=== PATIENT | male | born 1945 | race Caucasian/White ===

== ENCOUNTER 2021-08-25 13:13 | Inpatient (IN) | payer OTHER, MEDICARE ==
[~2021-08-25] VITALS: Ht 182.9 cm; Wt 98.0 kg
[2021-08-25 15:26] LABS: BASOPHILS % (AUTO) 0.7 % (0-1); EOSINOPHILS # (AUTO) 0.1 X10'3 (0-0.9); EOSINOPHILS % (AUTO) 2.2 % (0-6); HEMATOCRIT 38.8 % (42.0-52.0); HEMOGLOBIN 13.1 g/dl (14.0-17.9); LYMPHOCYTES # (AUTO) 1.4 X10'3 (1.1-4.8); MEAN CORPUSCULAR HEMOGLOBIN 29.9 PG (27.0-31.0); MEAN CORPUSCULAR HGB CONC 33.7 g/dL (33.0-36.5); MEAN CORPUSCULAR VOLUME 88.7 FL (78-98); MEAN PLATELET VOLUME 7.7 FL (7.4-10.4); MONOCYTES # (AUTO) 0.5 X10'3 (0-0.9); MONOCYTES % (AUTO) 9.1 % (2-12); NEUTROPHILS # (AUTO) 3.4 X10'3 (1.8-7.7); PLATELET COUNT 275 X10'3 (140-440); RED BLOOD COUNT 4.37 X10'6 (4.70-6.10); RED CELL DISTRIBUTION WIDTH 14.8 % (11.5-14.5); WHITE BLOOD COUNT 5.4 X10'3 (4.5-11.0)
[2021-08-25 15:41] LABS: APTT 30 SECONDS (22-32)
[2021-08-25 15:43] LABS: ALANINE AMINOTRANSFERASE 31 U/L (12-78); ALBUMIN 3.3 G/DL (3.4-5.0); ALBUMIN/GLOBULIN RATIO 0.9 (1.1-1.5); ALKALINE PHOSPHATASE 72 IU/L (46-116); ANION GAP 8 (8-16); ASPARTATE AMINO TRANSFERASE 19 U/L (10-37); BILIRUBIN,TOTAL 0.4 MG/DL (0.1-1.0); BLOOD UREA NITROGEN 23 MG/DL (7-18); BUN/CREATININE RATIO 27.7 (5.4-32.0); CALCIUM 8.6 MG/DL (8.5-10.1); CHLORIDE 107 MMOL/L (99-107); CREATININE 0.83 MG/DL (0.60-1.10); GLUCOSE 150 MG/DL (70-104); POTASSIUM 4.3 MMOL/L (3.5-5.1); SODIUM 142 MMOL/L (135-145); TOTAL CARBON DIOXIDE 26.9 MMOL/L (24-32); TOTAL PROTEIN 6.8 G/DL (6.4-8.2); eGFR 90 ML/MIN
[2021-08-25 15:51] LABS: C-REACTIVE PROTEIN 0.06 MG/DL (0.0-0.5); MAGNESIUM 2.6 MG/DL (1.5-2.4)
[2021-08-25] MEDS ORDERED: iohexol 350 MG/ML 50ML vial IV ONE (18:44)
[2021-08-25] MEDS ORDERED: iohexol 350MG/ML 100ml bottle IV ONE (18:44)
[2021-08-25 19:19] LABS: CLARITY,URINE CLEAR (Clear); COLOR,URINE YELLOW (Yellow); GLUCOSE, URINE >=1000 mg/dl (Neg); KETONES,URINE NEGATIVE (Neg); LEUKOCYTE ESTERASE ,URINE NEGATIVE (Neg); NITRITES, URINE NEGATIVE (Neg); OCCULT BLOOD,URINE NEGATIVE (Neg); PROTEIN,URINE TRACE mg/dl (Neg)
[2021-08-25 19:20] LABS: UA COLLECTION TYPE URINAL
[2021-08-25 19:29] LABS: BACTERIA,URINE FEW /HPF (Neg); MUCUS STRANDS FEW /LPF (Neg); RBC,URINE 0-2 /HPF (0-2); SQUAMOUS EPITHELIAL CELL,UR FEW /LPF (FEW); WBC,URINE 0-4 /HPF (0-4)
[2021-08-25] MEDS ORDERED: MESSAGE TO NURSING PO ONE (19:35)
[2021-08-25] MEDS ORDERED: heparin 10,000 units/1 ML INJ IV ONE (20:55)
[2021-08-25] MEDS: heparin 25,000 UNIT/250ml bag 250 ML IV SCH (21:10)
[2021-08-25 23:15] VITALS: BP 155/57
--- NOTE | 2021-08-25 23:30 | NUR ---
Received report from Chrissie RUIZ in the ER. Pt arrived on the unit via gurney and a slide board was used for transfer. Pt was on room air, saline locked, VSS, and with no signs of distress. Clothes were placed in a personal belongings bag and placed at bedside. Will continue to monitor. Addendum: 08/26/21 at 0510 by Lanette Gregorio RN charted on wrong patient
--- NOTE | 2021-08-25 23:30 | NUR ---
Received report from Chrissie in the ER. Pt arrived on the unit via gurney and was able to transfer to his bed with his cane and 1PA. Pt had a heparin drip running at 10, was on room air, VSS and no signs of distress. Pt belongings were placed at bedside. Will continue to monitor.
[2021-08-26] MEDS ORDERED: DEXTROSE 15 GM of carb/4 tabs (each vial/BOTTLE has 4 tablets) PO PRN ×2 (00:55)
[2021-08-26] MEDS ORDERED: HYDROcodone/acetaminophen 5mg/325mg tablet PO PRN (00:55)
[2021-08-26] MEDS ORDERED: ondansetron/PF 4mg/2ml inj IV PRN (00:55)
[2021-08-26] MEDS ORDERED: mag hydrox/Alum hydrox/simeth 30ml oral suspension PO PRN (00:55)
[2021-08-26] MEDS ORDERED: diphenhydrAMINE 50 mg/ml inj IV PRN (00:55)
[2021-08-26] MEDS ORDERED: dextrose 50%-water 50ml dispensing syringe IV PRN ×2 (00:55)
[2021-08-26] MEDS ORDERED: normal saline 1000ml 1,000 ML IV SCH (00:55)
[2021-08-26] MEDS ORDERED: morphine 2 MG/ML inj. syringe IV PRN ×2 (00:55)
[2021-08-26] MEDS ORDERED: MESSAGE TO PHARMACY PO ONE (00:55)
[2021-08-26] MEDS ORDERED: HYDROmorphone/PF 0.2 MG/ML SYRINGE IV PRN (00:55)
[2021-08-26] MEDS ORDERED: bisacodyl 10mg suppository rectal RC PRN (00:55)
[2021-08-26] MEDS ORDERED: magnesium hydroxide 30ml (MOM) UD suspension PO PRN (00:55)
[2021-08-26] MEDS ORDERED: diphenhydrAMINE 25mg capsule PO PRN (00:55)
[2021-08-26] MEDS ORDERED: ondansetron 4mg rapidly disintigrating tab PO PRN (00:55)
[2021-08-26] MEDS ORDERED: acetaminophen 325mg tablet PO PRN ×2 (00:55)
[2021-08-26] MEDS ORDERED: acetaminophen 650mg rectal suppository RC PRN (00:55)
[2021-08-26] MEDS ORDERED: HYDROmorphone inj. 0.5 MG/0.5 ML DISP.SYRIN IV PRN (00:55)
[2021-08-26] MEDS ORDERED: glucagon, human recombinant 1mg kit SUBCUT PRN (00:55)
[2021-08-26] MEDS: HYDROcodone/acetaminophen 10/325mg tab PO PRN ×4 (04:13→19:50)
--- NOTE | 2021-08-26 06:15 | NUR ---
Problems reprioritized. Patient report given, questions answered & plan of care reviewed with Ellyn RUIZ.
--- NOTE | 2021-08-26 06:23 | NUR ---
Patient in room [facility]. I have received report from Ellyn RUIZ and had the opportunity to ask questions and assume patient care.
[2021-08-26 06:37] LABS: HEMOGLOBIN A1C 7.7 % (4.5-6.2)
--- NOTE | 2021-08-26 06:40 | NUR ---
Patient in room [facility]. I have received report from JOSEPH Gama and had the opportunity to ask questions and assume patient care.
[2021-08-26 06:43] LABS: C-REACTIVE PROTEIN 0.08 MG/DL (0.0-0.5); CREATINE KINASE 104 U/L (39-308); MAGNESIUM 2.3 MG/DL (1.5-2.4); PHOSPHORUS 3.2 MG/DL (2.3-4.5)
[2021-08-26] MEDS: docusate sod 100mg capsule PO SCH ×2 (07:35→19:50)
[2021-08-26] MEDS: pantoprazole 40mg Tablet.DR PO SCH (07:36)
[2021-08-26 07:52] VITALS: BP 157/64
[2021-08-26 11:00] VITALS: BP 154/64
[2021-08-26 11:35] LABS: BASOPHILS # (AUTO) 0.1 X10'3 (0-0.2); BASOPHILS % (AUTO) 0.8 % (0-1); EOSINOPHILS # (AUTO) 0.1 X10'3 (0-0.9); EOSINOPHILS % (AUTO) 1.2 % (0-6); HEMATOCRIT 39.4 % (42.0-52.0); HEMOGLOBIN 12.9 g/dl (14.0-17.9); LYMPHOCYTES # (AUTO) 1.3 X10'3 (1.1-4.8); LYMPHOCYTES % (AUTO) 19.3 % (21-51); MEAN CORPUSCULAR HEMOGLOBIN 29.1 PG (27.0-31.0); MEAN CORPUSCULAR HGB CONC 32.7 g/dL (33.0-36.5); MEAN CORPUSCULAR VOLUME 88.8 FL (78-98); MEAN PLATELET VOLUME 8.1 FL (7.4-10.4); MONOCYTES # (AUTO) 0.6 X10'3 (0-0.9); MONOCYTES % (AUTO) 8.4 % (2-12); NEUTROPHILS # (AUTO) 4.7 X10'3 (1.8-7.7); NEUTROPHILS % (AUTO) 70.3 % (42-75); PLATELET COUNT 277 X10'3 (140-440); RED BLOOD COUNT 4.44 X10'6 (4.70-6.10); RED CELL DISTRIBUTION WIDTH 14.8 % (11.5-14.5); WHITE BLOOD COUNT 6.7 X10'3 (4.5-11.0)
--- NOTE | 2021-08-26 11:48 | NUR ---
DM Consult: Pt hx T2DM A1C 7.7% this admit per EMR. Pt seen by RD for written/verbal DM ed w/ RD contact information provided. Pt reports takes meds per Rx and A1C used to be in ~11% range. RD encouraged pt to contact dietitian's office if further questions/concerns. Addendum: 08/26/21 at [address] Amended: Links added.
[2021-08-26 11:51] LABS: ALANINE AMINOTRANSFERASE 31 U/L (12-78); ALBUMIN 3.2 G/DL (3.4-5.0); ALKALINE PHOSPHATASE 65 IU/L (46-116); ANION GAP 12 (8-16); ASPARTATE AMINO TRANSFERASE 20 U/L (10-37); BILIRUBIN,TOTAL 0.4 MG/DL (0.1-1.0); BLOOD UREA NITROGEN 17 MG/DL (7-18); BUN/CREATININE RATIO 27.9 (5.4-32.0); CALCIUM 8.6 MG/DL (8.5-10.1); CHLORIDE 107 MMOL/L (99-107); CREATININE 0.61 MG/DL (0.60-1.10); GLUCOSE 50 MG/DL (70-104); POTASSIUM 3.6 MMOL/L (3.5-5.1); SODIUM 141 MMOL/L (135-145); TOTAL CARBON DIOXIDE 22.3 MMOL/L (24-32); TOTAL PROTEIN 6.5 G/DL (6.4-8.2); eGFR > 90 ML/MIN
--- NOTE | 2021-08-26 11:55 | NUR ---
DVT PTT drawn at 1036, resulted at 53, within therapeutic range. No changes made to heparin gtt. Will reassess again at 1630, per protocol, and continue to monitor.
[2021-08-26] MEDS ORDERED: INSU100I25 SQ (12:29)
[2021-08-26] MEDS ORDERED: LACT1CAP65 PO (12:29)
[2021-08-26] MEDS ORDERED: METF-438 PO (12:29)
[2021-08-26] MEDS ORDERED: APIX5TAB3 PO (12:29)
[2021-08-26] MEDS ORDERED: EMPA25TA PO (12:29)
[2021-08-26] MEDS ORDERED: TERA2CAP4 PO (12:29)
[2021-08-26] MEDS ORDERED: SEMA0.25 SQ (12:29)
[2021-08-26] MEDS ORDERED: SIMV20TA PO (12:29)
[2021-08-26] MEDS ORDERED: FURO-149 PO (12:29)
[2021-08-26] MEDS ORDERED: LISI2.5T89 PO (12:35)
--- NOTE | 2021-08-26 14:24 | NUR ---
PRESSURE ULCER EDUCATION: DEFINITION: A pressure ulcer is an area of skin that breaks down when you stay in one position too long. The constant pressure against the skin reduces the blood flow to that area and the affected tissue dies. CAUSES: "Being bedridden or in a wheelchair "Fragile skin "Having a chronic condition, such as diabetes or vascular disease "Inability to move certain parts of your body without assistance "Older age "Incontinence of urine or stool SYMPTOMS: "A reddened area that DOES NOT turn white when pressed on - this can be the beginning of a pressure ulcer "A blister, deep sore or a crater - these can be advanced pressure ulcers FIRST AID: "Relieve the pressure on this area "Keep the area clean and dry "Call your primary doctor if you see any of the above symptoms "DO NOT massage the area "DO NOT use a donut shaped or ring shaped pillow- these actually interfere with the blood flow and cause complications PREVENTION: "Check for pressure ulcers everyday "Change position at least every two hours to relieve pressure "Use items that help relieve pressure- pillows, sheepskin, foam padding, and powders. "Keep skin clean and dry "Eat healthy well balanced meals "Exercise daily IF YOU SEE ANY OF THESE SYMPTOMS WHILE IN THE HOSPITAL - TELL YOUR NURSE IMMEDIATELY. IF YOU SEE ANY OF THESE SYMPTOMS WHILE AT HOME OR HAVE ANY QUESTIONS OR CONCERNS ABOUT PRESSURE ULCERS - CALL YOUR PRIMARY DOCTOR IMMEDIATELY. Addendum: 08/26/21 at 1424 by Ayaka Campbell RN Amended: Links added.
[2021-08-26] MEDS ORDERED: ASCO500C17 PO (15:14)
[2021-08-26] MEDS ORDERED: CHOL100025 PO (15:14)
[2021-08-26] MEDS ORDERED: MULT-1172 PO (15:14)
[2021-08-26] MEDS ORDERED: GARL100T PO (15:14)
[2021-08-26] MEDS ORDERED: SIMV10TA98 PO (15:14)
[2021-08-26] MEDS ORDERED: POTA-82 PO (15:14)
[2021-08-26] MEDS: heparin 25,000 UNIT/250ml bag 250 ML IV SCH (15:27)
--- NOTE | 2021-08-26 17:46 | NUR ---
DVT PTT drawn at 1630, resulted at 49, within therapeutic range. No changes made to heparin gtt. Will reassess again at 2230, per protocol, and continue to monitor.
--- NOTE | 2021-08-26 18:47 | NUR ---
Problems reprioritized. Patient report given, questions answered & plan of care reviewed with JOSEPH Mirza.
--- NOTE | 2021-08-26 18:50 | NUR ---
Patient in room [facility]. I have received report from NIMESH RUIZ and had the opportunity to ask questions and assume patient care.
[2021-08-26 20:00] VITALS: BP 166/51
[2021-08-26] MEDS ORDERED: temazepam 15mg capsule PO PRN (21:00)
[2021-08-26] MEDS ORDERED: insulin glargine (Lantus) pen - multi-dose SQ SCH (21:00)
--- NOTE | 2021-08-26 23:39 | NUR ---
DVT PTT RESULT IN 48 NO CHANGE IN HEPARIN DRIP INFUSION.
[2021-08-27] VITALS: BP 130/60
[2021-08-27] MEDS: HYDROcodone/acetaminophen 10/325mg tab PO PRN ×3 (01:50→15:28)
[2021-08-27 06:24] LABS: BASOPHILS % (AUTO) 0.8 % (0-1); EOSINOPHILS # (AUTO) 0.2 X10'3 (0-0.9); EOSINOPHILS % (AUTO) 3.5 % (0-6); HEMOGLOBIN 13.4 g/dl (14.0-17.9); LYMPHOCYTES # (AUTO) 1.6 X10'3 (1.1-4.8); LYMPHOCYTES % (AUTO) 26.7 % (21-51); MEAN CORPUSCULAR HEMOGLOBIN 30.3 PG (27.0-31.0); MEAN CORPUSCULAR HGB CONC 33.6 g/dL (33.0-36.5); MEAN CORPUSCULAR VOLUME 90.1 FL (78-98); MEAN PLATELET VOLUME 7.6 FL (7.4-10.4); MONOCYTES # (AUTO) 0.6 X10'3 (0-0.9); NEUTROPHILS # (AUTO) 3.5 X10'3 (1.8-7.7); PLATELET COUNT 263 X10'3 (140-440); RED BLOOD COUNT 4.44 X10'6 (4.70-6.10); RED CELL DISTRIBUTION WIDTH 14.8 % (11.5-14.5); WHITE BLOOD COUNT 5.9 X10'3 (4.5-11.0)
--- NOTE | 2021-08-27 06:25 | NUR ---
Problems reprioritized. Patient report given, questions answered & plan of care reviewed with NIMESH RUIZ.
--- NOTE | 2021-08-27 06:28 | NUR ---
Patient in room [facility]. I have received report from JOSEPH Mirza and had the opportunity to ask questions and assume patient care.
[2021-08-27 06:37] LABS: ALANINE AMINOTRANSFERASE 30 U/L (12-78); ALBUMIN 3.1 G/DL (3.4-5.0); ALBUMIN/GLOBULIN RATIO 0.9 (1.1-1.5); ALKALINE PHOSPHATASE 66 IU/L (46-116); ANION GAP 8 (8-16); ASPARTATE AMINO TRANSFERASE 17 U/L (10-37); BILIRUBIN,TOTAL 0.4 MG/DL (0.1-1.0); BLOOD UREA NITROGEN 21 MG/DL (7-18); BUN/CREATININE RATIO 24.7 (5.4-32.0); CALCIUM 8.4 MG/DL (8.5-10.1); CHLORIDE 108 MMOL/L (99-107); CHOLESTEROL 133 MG/DL (0-200); CREATININE 0.85 MG/DL (0.60-1.10); GLUCOSE 105 MG/DL (70-104); HDL CHOLESTEROL 45 MG/DL (35-60); LDL CHOLESTEROL 80 MG/DL (50-100); POTASSIUM 4.3 MMOL/L (3.5-5.1); SODIUM 143 MMOL/L (135-145); TOTAL CARBON DIOXIDE 27.4 MMOL/L (24-32); TOTAL PROTEIN 6.5 G/DL (6.4-8.2); TRIGLYCERIDES 93 MG/DL (20-135); eGFR 87 ML/MIN
[2021-08-27] MEDS: pantoprazole 40mg Tablet.DR PO SCH (06:42)
[2021-08-27 07:00] VITALS: BP 153/99
--- NOTE | 2021-08-27 07:21 | NUR ---
DVT PTT result of 42, rate increased to 1200 units/hr per protocol. No heparin bolus ordered, pharmacist Nela notified. Also noted, current heparin gtt protocol ordered is cardiac, not DVT. Pharmacist states she will page daytime hospitalist, Dr Mcallister, for further orders. support dba aware, will continue to monitor.
[2021-08-27] MEDS: docusate sod 100mg capsule PO SCH (08:43)
[2021-08-27] MEDS: insulin Lispro (HumaLOG) vial - multi-dose SQ SCH ×2 (08:48→13:21)
[2021-08-27] MEDS: heparin 25,000 UNIT/250ml bag 250 ML IV SCH ×2 (09:10→13:21)
[2021-08-27] MEDS ORDERED: heparin 10,000 units/1 ML INJ IV ONE (09:10)
[2021-08-27] MEDS ORDERED: heparin 10,000 units/1 ML INJ IV PRN (09:10)
--- NOTE | 2021-08-27 09:14 | NUR ---
Orders received from Dr Mcallister to convert from cardiac heparin gtt to DVT heparin gtt. Pharmacist Jeff notified, states he will dose rate change and not to give initial heparin bolus. Will continue to monitor.
[2021-08-27] MEDS ORDERED: benzocaine/menthol oral lozeng 1 EACH BOX MM PRN (10:05)
[2021-08-27 11:00] VITALS: BP 129/64
--- NOTE | 2021-08-27 16:37 | NUR ---
DVT PTT drawn at 1350 result of 91. Heparin gtt stopped x60 minutes per protocol. Will continue to monitor.
--- NOTE | 2021-08-27 17:35 | NUR ---
Heparin gtt restarted at 1500 units/hr, per protocol.
--- NOTE | 2021-08-27 18:25 | NUR ---
Pt picked up by air transport at 1805, chris Delong at bedside. Report given to flight RN, as well as JOSEPH Hollins at [facility]. 2 bags of belongings transferred with patient, rest of belongings sent home with son. Pt transported with heparin gtt infusing at 1500 units/hr, and PIV in place to his right AC. Pt transported via gurney, accompanied by EMT personnel and flight RN. 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 Main phone number to [facility] provided to chris Delong.
== END 2021-08-27 18:05 | disposition short-term general hospital (02) | DRG 300 ==
LOC: ER 13:14 → UNDOADMIN 22:20 → SUR 3N 22:20
PROVIDERS: ADMIT Family Medicine; ATTEND Family Medicine
PROC: B42H1ZZ Computerized Tomography (CT Scan) of Bilateral Lower Extremity Arteries using Low Osmolar Contrast (ICD-10-PCS; principal; 2021-08-25)
DX: I70.201 Unspecified atherosclerosis of native arteries of extremities, right leg (principal); I82.431 Acute embolism and thrombosis of right popliteal vein; Z20.822 Contact with and (suspected) exposure to COVID-19; E11.51 Type 2 diabetes mellitus with diabetic peripheral angiopathy without gangrene; E11.65 Type 2 diabetes mellitus with hyperglycemia; E78.5 Hyperlipidemia, unspecified; I10 Essential (primary) hypertension; I65.21 Occlusion and stenosis of right carotid artery; L40.9 Psoriasis, unspecified; R26.9 Unspecified abnormalities of gait and mobility; M21.371 Foot drop, right foot; M51.36 Other intervertebral disc degeneration, lumbar region; N40.0 Benign prostatic hyperplasia without lower urinary tract symptoms; Z79.4 Long term (current) use of insulin; Z79.84 Long term (current) use of oral hypoglycemic drugs; Z86.718 Personal history of other venous thrombosis and embolism; Z87.891 Personal history of nicotine dependence; Z79.899 Other long term (current) drug therapy
CPT/HCPCS: 36415; 70450; 71045; 72131; 75635; 80053; 80061; 81001; 82550; 82948; 83036; 83605; 83735; 83880; 84100; 84484; 85025; 85610; 85651; 85730; 86140; 87040; 87081; 87635; 93005; 93306; 93880; 93922; 93925; 93970; 99291; G0378; J1644; J1815; Q9967